=== PATIENT | male | born 1970 | race Asian ===

== ENCOUNTER 2022-02-18 13:03 | Emergency (ER) | payer OTHER ==
[~2022-02-18] VITALS: Ht 172.7 cm; Wt 86.2 kg
[2022-02-18 13:13] VITALS: BP_SYST 144
[2022-02-18] MEDS ORDERED: ACETAMINOPHEN 325 MG TABLET PO ONE (14:00)
[2022-02-18] MEDS ORDERED: ACET-2634 PO (14:55)
[2022-02-18] MEDS ORDERED: IBUP-1969 PO (14:55)
[2022-02-18 15:15] VITALS: BP_SYST 144
== END 2022-02-18 15:17 | disposition home or self-care (01) ==
LOC: SED 13:03
DX: S09.90XA Unspecified injury of head, initial encounter (principal); Y04.0XXA Assault by unarmed brawl or fight, initial encounter; Y93.89 Activity, other specified; Y92.89 Other specified places as the place of occurrence of the external cause; Y99.8 Other external cause status
CPT/HCPCS: 70450-TC; 76376; 99284

== ENCOUNTER 2023-04-04 21:13 | Inpatient (IN) | payer BC, OTHER ==
[~2023-04-04] VITALS: Ht 175.3 cm; Wt 88.1 kg
[~2023-04-04 21:13] MED LIST: ACET-2634 PO; IBUP-1969 PO
[2023-04-04 21:17] VITALS: BP_SYST 100
[2023-04-04 22:06] LABS: BASOPHILS % (AUTO) 0.8 % (0.0-2.0); EOSINOPHILS # (AUTO) 0.2 K/uL (0.0-0.4); EOSINOPHILS % (AUTO) 3.8 % (0.0-4.0); HEMATOCRIT 41.8 % (36-54); HEMOGLOBIN 14.3 g/dL (14.0-18.0); LYMPHOCYTES # (AUTO) 1.9 K/uL (1.0-5.5); LYMPHOCYTES % (AUTO) 39.7 % (20.5-51.5); MEAN CORPUSCULAR HEMOGLOBIN 31 pg (27-31); MEAN CORPUSCULAR HGB CONC 34 % (32-36); MEAN CORPUSCULAR VOLUME 92 fL (79.0-98.0); MONOCYTES # (AUTO) 0.3 K/uL (0.0-1.0); MONOCYTES % (AUTO) 6.8 % (1.7-9.3); NEUTROPHILS # (AUTO) 2.3 K/uL (1.8-7.7); NEUTROPHILS % (AUTO) 48.9 % (40.0-70.0); PLATELET COUNT (AUTO) 167 K/uL (130-430); RED BLOOD CELL COUNT(AUTO) 4.57 MIL/uL (4.2-6.2); RED CELL DISTRIBUTION WIDTH 12.6 % (9.0-15.0); WHITE BLOOD COUNT (AUTO) 4.7 K/uL (4.8-10.8)
[2023-04-04 22:16] LABS: ANION GAP 12 (5-15); CALCIUM 9.8 mg/dL (8.4-11.0); CHLORIDE 104 mmol/L (98-107); CREATININE 1.07 mg/dL (0.55-1.30); GFR AFRICAN AMERICAN 94 mL/min (>90); GLUCOSE 225 mg/dL (70-99); UREA NITROGEN, BLOOD 18 mg/dL (8-21)
[2023-04-04 22:23] LABS: ALANINE AMINOTRANSFERASE 57 U/L (12-78); ALBUMIN 4.1 g/dL (3.4-4.8); ASPARTATE AMINOTRANSFERASE 19 U/L (10-37); TOTAL BILIRUBIN 0.6 mg/dL (0.0-1.0)
[2023-04-05 01:00] VITALS: BP_SYST 119
[2023-04-05] MEDS ORDERED: HYDROcodone/ACETAMIN 10-325 MG TAB PO PRN (10:30)
[2023-04-05] MEDS ORDERED: NALOXONE HCL 0.4 MG/ML AMP (NARCAN) IVP PRN ×2 (10:30)
[2023-04-05] MEDS ORDERED: HYDROcodone/ACETAMIN 5-325 MG TAB (NORCO/ VICODIN) PO PRN (10:30)
[2023-04-05] MEDS ORDERED: LORazepam 2 MG/ML VIAL IVP PRN (10:30)
[2023-04-05] MEDS ORDERED: ONDANSETRON HCL 4 MG/2 ML VIAL IVP PRN (10:30)
[2023-04-05] MEDS ORDERED: ACETAMINOPHEN 325 MG TABLET PO PRN ×2 (10:30→10:45)
[2023-04-05 11:08] LABS: BASOPHILS % (AUTO) 0.7 % (0.0-2.0); EOSINOPHILS # (AUTO) 0.3 K/uL (0.0-0.4); EOSINOPHILS % (AUTO) 4.4 % (0.0-4.0); HEMATOCRIT 42.3 % (36-54); HEMOGLOBIN 14.7 g/dL (14.0-18.0); LYMPHOCYTES # (AUTO) 2.3 K/uL (1.0-5.5); LYMPHOCYTES % (AUTO) 36.4 % (20.5-51.5); MEAN CORPUSCULAR HEMOGLOBIN 32 pg (27-31); MEAN CORPUSCULAR HGB CONC 35 % (32-36); MEAN CORPUSCULAR VOLUME 91 fL (79.0-98.0); MONOCYTES # (AUTO) 0.4 K/uL (0.0-1.0); MONOCYTES % (AUTO) 6.4 % (1.7-9.3); NEUTROPHILS # (AUTO) 3.3 K/uL (1.8-7.7); NEUTROPHILS % (AUTO) 52.1 % (40.0-70.0); PLATELET COUNT (AUTO) 160 K/uL (130-430); RED BLOOD CELL COUNT(AUTO) 4.65 MIL/uL (4.2-6.2); RED CELL DISTRIBUTION WIDTH 12.6 % (9.0-15.0); WHITE BLOOD COUNT (AUTO) 6.4 K/uL (4.8-10.8)
[2023-04-05 11:29] LABS: ALBUMIN 3.9 g/dL (3.4-4.8); CALCIUM 8.8 mg/dL (8.4-11.0); CREATININE 0.81 mg/dL (0.55-1.30); THYROID STIMULATING HORMONE 1.07 uIu/mL (0.34-4.82); TOTAL BILIRUBIN 0.8 mg/dL (0.0-1.0)
[2023-04-05 11:49] VITALS: BP_SYST 148
[2023-04-05] MEDS: NORMAL SALINE 5 ML DISP.SYRIN IVF SCH ×2 (13:28→21:49)
[2023-04-05] MEDS ORDERED: METF-379 PO (15:41)
[2023-04-05] MEDS ORDERED: LIP10 PO (15:41)
[2023-04-05] MEDS ORDERED: ATORVASTATIN 10 MG TABLET PO ONE (16:00)
[2023-04-05] MEDS ORDERED: INSULIN LISPRO SLIDING SCALE 100 UNITS/ML, 3 ML VIAL (humaLOG) SUBCUT PRN (16:15)
[2023-04-05] MEDS ORDERED: GLUCOSE (DEXTROSE) ORAL GEL -Adults PO PRN (16:15)
[2023-04-05] MEDS ORDERED: D5W 1,000 ML IV PRN (16:15)
[2023-04-05] MEDS ORDERED: DEXTROSE 50% JECT 50 ML DISP.SYRIN IVP PRN (16:15)
[2023-04-05 17:24] VITALS: BP_SYST 123
[2023-04-05] MEDS ORDERED: metFORMIN HCL 500 MG TABLET PO SCH (18:00)
[2023-04-05] MEDS ORDERED: [UNRECOGNIZED DRUG - OTHER] PO (19:17)
[2023-04-05] MEDS ORDERED: FINE10TA PO (19:17)
[2023-04-05 20:00] VITALS: BP_SYST 122
[2023-04-05] MEDS ORDERED: FINERENONE 10 MG PO SCH (21:00)
[2023-04-06 00:07] VITALS: BP_SYST 109
[2023-04-06] MEDS: NORMAL SALINE 5 ML DISP.SYRIN IVF SCH (06:12)
[2023-04-06 07:50] LABS: BASOPHILS % (AUTO) 0.7 % (0.0-2.0); EOSINOPHILS # (AUTO) 0.3 K/uL (0.0-0.4); HEMATOCRIT 42.1 % (36-54); HEMOGLOBIN 14.6 g/dL (14.0-18.0); LYMPHOCYTES # (AUTO) 1.9 K/uL (1.0-5.5); LYMPHOCYTES % (AUTO) 30.8 % (20.5-51.5); MEAN CORPUSCULAR HEMOGLOBIN 32 pg (27-31); MEAN CORPUSCULAR HGB CONC 35 % (32-36); MEAN CORPUSCULAR VOLUME 91 fL (79.0-98.0); MONOCYTES # (AUTO) 0.4 K/uL (0.0-1.0); MONOCYTES % (AUTO) 6.9 % (1.7-9.3); NEUTROPHILS # (AUTO) 3.6 K/uL (1.8-7.7); NEUTROPHILS % (AUTO) 57.6 % (40.0-70.0); PLATELET COUNT (AUTO) 145 K/uL (130-430); RED BLOOD CELL COUNT(AUTO) 4.64 MIL/uL (4.2-6.2); RED CELL DISTRIBUTION WIDTH 12.3 % (9.0-15.0); WHITE BLOOD COUNT (AUTO) 6.3 K/uL (4.8-10.8)
[2023-04-06 07:53] LABS: CALCIUM 8.7 mg/dL (8.4-11.0); CREATININE 0.72 mg/dL (0.55-1.30)
[2023-04-06 08:00] VITALS: BP_SYST 97
[2023-04-06] MEDS ORDERED: ATORVASTATIN 10 MG TABLET PO SCH (09:00)
[2023-04-06] MEDS ORDERED: PATIENT'S OWN TABLET PO SCH (09:00)
[2023-04-06 12:00] VITALS: BP_SYST 122
[2023-04-06 12:03] VITALS: BP_SYST 122
== END 2023-04-06 13:48 | disposition home health service (06) | DRG 310 ==
LOC: SED 21:13 → STU 23:52
PROVIDERS: ADMIT Preventive Medicine Preventive Medicine/Occupational Environmental Medicine; ATTEND Preventive Medicine Preventive Medicine/Occupational Environmental Medicine
DX: I47.1 Supraventricular tachycardia (principal); I95.9 Hypotension, unspecified; I11.9 Hypertensive heart disease without heart failure; E78.5 Hyperlipidemia, unspecified; E11.9 Type 2 diabetes mellitus without complications; Z20.822 Contact with and (suspected) exposure to COVID-19
CPT/HCPCS: 36415; 70450-TC; 71045; 76376; 80048; 80053; 80061; 84443; 84484; 85025; 93005; 93306; 93880; 95816; 97116-GP; 97530-GP; 99285; G0378